=== PATIENT | male | born 1990 | race Two or more races ===

== ENCOUNTER 2016-09-28 06:26 | Day surgery (SDC) | payer MEDICAID ==
[~2016-09-28 06:26] MED LIST: FENTANYL 250 MCG/5 ML AMP IV PRN; IV START KIT ONE; LACTATED RINGERS 1,000 ML IV SCH; LACTATED RINGERS 1,000 ML ONE; LIDOCAINE Viscous 2% 15 ML UDCUP PO PRN; MIDAZOLAM HCL 5 MG/5 ML VIAL IV PRN
[2016-09-28] MEDS ORDERED: FENTANYL 100 MCG/2 ML VIAL ONE ×2 (06:38→06:58)
[2016-09-28 12:36] LABS: HELICOBACTER PYLORII DETECTION NEGATIVE (NEGATIVE)
--- NOTE | 2016-10-01 12:37 | SURGPATH ---
[employer] [address] [place] [id number] Patient Name: JEROME TILLMAN MR#: [id number] : 1990 Gender: M Specimen #: [id number] Collected: 09/28/2016 Received: 09/29/2016 Reported: 10/01/2016 Submitting Phys: ANTONIO DAY Copy To Phys: S[facility] [place], STEVEN Clinical History / Pre-Operative Diagnosis: Epigastric pain with nausea, rule out; giardia, celiac sprue, gastritis Specimen Source / Surgical Procedure Performed: #1 duodenum biopsy, #2 antrum biopsy Interpretation: 1. BIOPSY, DUODENUM: - NO SIGNIFICANT PATHOLOGIC ABNORMALITIES IDENTIFIED. 2. BIOPSY, ANTRUM: - MILD CHRONIC ANTRAL GASTRITIS. - IMMUNOHISTOCHEMICAL STAINING FOR HELICOBACTER NEGATIVE. Electronically Signed Out Sophia Deluna M.D. Gross Description: 1. The specimen is received in formalin labeled with the patient's name and "duodenum". The specimen consists of a single fragment of gama soft tissue, 0.5 cm in greatest dimension. Submitted in toto in one cassette 2. The specimen is received in formalin labeled with the patient's name and "antrum". The specimen consists of two fragments of gama soft tissue each is 0.4-0.5 cm in greatest dimension. Submitted in toto in one cassette MARIA DEL CARMEN [place] Microscopic Description: 1. Sections of the duodenal biopsy show fragments of benign duodenal mucosa with no significant pathologic changes. 2. Sections of the antral biopsy show benign antral mucosa with focal areas of mildly increased chronic inflammation of the lamina propria, including some clustering of plasma cells. No active, acute inflammation is seen. There is no evidence of intestinal metaplasia or mucosal atrophy. No Helicobacter organisms are appreciated on the routinely stained sections. Immunohistochemical staining for Helicobacter is negative. The control stains appropriately. (Analyte-specific reagents (ASR) are used in many laboratory tests necessary for standard medical care and generally do not require FDA approval. This test was developed and its performance characteristics determined by [employer] [facility] [employer]. It has not been cleared or approved by the [place].S. Food and Drug Administration. [facility] is certified under the Clinical Laboratory Improvement Amendments of 1988 as qualified to perform high complexity clinical laboratory testing. All controls stain as expected.) 1: 71021 2: 37603, 11969 K29.50
== END 2016-09-28 08:35 | disposition home or self-care (01) ==
LOC: SDC 06:26
PROVIDERS: ATTEND Internal Medicine Gastroenterology
PROC: 0DB98ZX Excision of Duodenum, Via Natural or Artificial Opening Endoscopic, Diagnostic (ICD-10-PCS; principal; 2016-09-28)
PROC: 0DB68ZX Excision of Stomach, Via Natural or Artificial Opening Endoscopic, Diagnostic (ICD-10-PCS; 2016-09-28)
DX: K29.50 Unspecified chronic gastritis without bleeding (principal); K29.80 Duodenitis without bleeding
CPT/HCPCS: 43239; 87081; J3010 ×2; J2250; A9270; J7120